=== PATIENT | male | born 1960 | race Caucasian/White ===

== ENCOUNTER → 2023-06-30 10:26 | Outpatient (CLI) | payer OTHER, SELFPAY ==
--- NOTE | 2023-06-30 10:39 | DI.RAD.S_ITS ---
PROCEDURE: XR FOOT RT MIN 3V INDICATIONS: Plantar fascial fibromatosis TECHNIQUE: 3 views of the foot were acquired. COMPARISON: [facility], , XR FOOT LT MIN 3V, 06/30/2023, 10:44. FINDINGS: Bones: No fractures or dislocations. No suspicious bony lesions. Soft tissues: No tibiotalar joint effusion. Achilles tendon appears normal. IMPRESSION: Normal right foot radiographs Approved by: Andrew Menendez M.D. on 06/30/2023 at 14:28
--- NOTE | 2023-06-30 10:39 | DI.RAD.S_ITS ---
PROCEDURE: XR FOOT LT MIN 3V INDICATIONS: Plantar fascial fibromatosis TECHNIQUE: 3 views of the foot were acquired. COMPARISON: None. FINDINGS: Bones: No fractures or dislocations. No suspicious bony lesions. Soft tissues: No tibiotalar joint effusion. Achilles tendon appears normal. IMPRESSION: Normal left foot radiographs Approved by: Andrew Mennedez M.D. on 06/30/2023 at 14:27
== END ==
PROVIDERS: PCP Family Medicine; Referring Provider Podiatrist Foot & Ankle Surgery; Visit Provider Podiatrist Foot & Ankle Surgery
DX: M72.2 Plantar fascial fibromatosis (principal)
CPT/HCPCS: 73630

== ENCOUNTER → 2023-07-17 08:37 | Outpatient (CLI) | payer OTHER, MEDICAID, SELFPAY ==
--- NOTE | 2023-07-17 | DI.MRI.S_ITS ---
PROCEDURE: MR FOOT RT WO/W CON INDICATIONS: Localized swelling, mass and lump, lower limb, liat TECHNIQUE: Noncontrast coronal T1 spin echo and STIR, sagittal T1 spin echo with fat saturation and STIR, axial T1 spin echo and T2 fast spin echo with fat saturation. After the administration of contrast, axial/sagittal/coronal T1 spin echo with fat saturation through the right foot. COMPARISON: [facility], CR, XR FOOT RT MIN 3V, 06/30/2023, 10:47. FINDINGS: Image quality: Excellent. Bones: Midfoot and forefoot joint osteoarthritic changes are seen with joint space narrowing and subchondral sclerosis. Bipartite medial sesamoid of 1st metatarsal head is seen with mild edema within medial sesamoid. No fracture or dislocation.. No metatarsal stress fractures. No suspicious intraosseous lesion or abnormal intraosseous enhancement. Soft tissues: No enhancing soft tissue mass is seen between metatarsal heads to suggest neuroma. No drainable fluid collection. The scanned muscles demonstrate normal overall bulk and internal signal. Visualized plantar fascia is within normal limits. Midfoot and forefoot tendons and ligaments are grossly intact. Sagittal images shows no gross plantar plate tear. IMPRESSION: 1. No suspicious bony lesion or abnormal intraosseous enhancement. No fracture or dislocation. No metatarsal stress fractures. [id number] midfoot and forefoot joint osteoarthritis. Possible low-grade sesamoiditis involving medial sesamoid of 1st metatarsal head. 2. No enhancing soft tissue mass. No evidence of neuroma. No drainable fluid collection. Forefoot tendons and ligaments are grossly intact. Dictated by: Juanito Gilliam M.D. on 07/18/2023 at 10:08 Approved by: Juanito Gilliam M.D. on 07/18/2023 at 10:15
--- NOTE | 2023-07-17 | DI.MRI.S_ITS ---
PROCEDURE: MR FOOT LT WO/W CON INDICATIONS: Localized swelling, mass and lump, lower limb, liat TECHNIQUE: Noncontrast sagittal T1 spin echo and T2 fast spin echo with fat saturation, long-axis T1 spin echo and T2 fast spin echo with fat saturation; short-axis T1 spin echo, proton density fast spin echo, and T2 fast spin echo with fat saturation through the forefoot. Post-contrast short axis, long axis, and sagittal T1 spin echo with fat saturation through the forefoot. COMPARISON: [facility], CR, XR FOOT LT MIN 3V, 06/30/2023, 10:44. [facility], MR, MR FOOT RT WO/W CON, 07/17/2023, 9:32. FINDINGS: Image quality: Excellent. Bones and joints: There is moderate hallux valgus. [id number] osteoarthritic changes are noted throughout midfoot and forefoot joints most notably involving 1st MTP joint. No fracture or dislocation. No metatarsal stress fractures. Bipartite medial sesamoid of 1st metatarsal head is seen with mild edema, low-grade sesamoiditis cannot be excluded. No area of abnormal intraosseous enhancement. No suspicious bony lesions. Soft tissues: Oval nodular thickening involving plantar fascia at the level of 2nd TMT joint is seen measures 1.8 x 0.8 x 1.7 cm in size, series 5, image 13 and series 9 image 42 and show mild heterogeneous contrast enhancement. No other enhancing mass. No drainable fluid collection. No abnormal signal or enhancement between metatarsal heads are seen to suggest neuroma. The visualized plantar foot muscles demonstrate normal signal and bulk. Visualized flexor and extensor tendons appear intact, without tenosynovitis. The distal insertions of the peroneus brevis and longus tendons appear intact. The principal Lisfranc ligament appears intact. The sagittal images shows no definite plantar plate tear. IMPRESSION: 1. 1.8 x 0.8 x 1.7 cm oval T1 and T2 hypointense nodule involving plantar fascia at the level of 2nd TMT joint and show heterogeneous contrast enhancement most likely represent plantar fibroma. No other enhancing soft tissue mass is seen. No drainable fluid collection. 2. [id number] midfoot and forefoot joint osteoarthritis. Moderate hallux valgus. Mild edema in bipartite medial sesamoid of 1st metatarsal head, low-grade sesamoiditis cannot be excluded. No metatarsal stress fractures. No suspicious intraosseous lesion. Dictated by: Juanito Gilliam M.D. on 07/18/2023 at 10:21 Approved by: Juanito Gilliam M.D. on 07/18/2023 at 10:28
== END ==
PROVIDERS: PCP Family Medicine; Referring Provider Podiatrist Foot & Ankle Surgery; Visit Provider Podiatrist Foot & Ankle Surgery
DX: M19.072 Primary osteoarthritis, left ankle and foot (principal); M19.071 Primary osteoarthritis, right ankle and foot; M72.2 Plantar fascial fibromatosis; R22.43 Localized swelling, mass and lump, lower limb, bilateral; M20.12 Hallux valgus (acquired), left foot
CPT/HCPCS: 73720; A9579